=== PATIENT | female | born 1945 | race Caucasian/White ===

== ENCOUNTER 2016-08-26 08:22 | Observation (INO) | payer MEDICARE, OTHER ==
[~2016-08-26] VITALS: Ht 157.5 cm; Wt 75.6 kg
[2016-08-26 08:25] VITALS: BP 157/70; PULSE 65; RESP 16; TEMP 97.4; O2SAT 97
[2016-08-26] MEDS ORDERED: ONDANSETRON HCL 4 MG/2 ML VIAL ONE (08:51)
[2016-08-26] MEDS ORDERED: ONDANSETRON HCL 4 MG/2 ML VIAL IV PUSH ONE (09:00)
[2016-08-26] MEDS ORDERED: SODIUM CHLOR 0.9% 1000 ML INJ 1,000 ML IV SCH (09:00)
--- NOTE | 2016-08-26 09:04 | PD ---
HPI Chief Complaint: GI Complaint Time Seen by Provider: 08:32 Travel History International Travel<30 days: No Contact w/Intl Traveler<30days: No Traveled to known affect area: No History of Present Illness HPI This 71-year-old female presents with complaint of vomiting. He says the vomiting started yesterday and has been fairly persistent. She has trouble holding liquids down. Last Friday she developed some sore throat and cough. This seemed to be getting better on Friday. Friday she started with some headache and some cramping in her feet. Friday she started vomiting. She was started on a diuretic on . 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 She has had some loose stools but not really diarrhea. She is not complaining of abdominal pain. Cough is improved PFSH Past Medical History Hx Anticoagulant Therapy: No Cardiovascular Problems: Yes (HTN) Diabetes: No ?: Not Social History Tobacco Use: No Allergies-Medications (Allergen,Severity, Reaction): Coded Allergies: Sulfa (Verified Allergy, Severe, 08/26/16) Reported Meds & Prescriptions Reported Meds & Active Scripts Active Reported Brimonidine Opth Drops (Brimonidine Tartrate) 0.15% Soln 1 Drop EACH EYE TID Levothyroxine (Levothyroxine Sodium) 100 Mcg Tab 100 Mcg PO DAILY Amlodipine (Amlodipine Besylate) 5 Mg Tab 5 Mg PO DAILY Triamterene-Hydrochlorothiazide 37.5-25 Mg Tab 1 Tab PO DAILY Review of Systems General / Constitutional: No: Fever, Chills Eyes: No: Diploplia, Blurred Vision HENT: Positive: Headaches, Vertigo, Lightheadedness Cardiovascular: No: Chest Pain or Discomfort, Palpitations Respiratory: Positive: Cough, No: Shortness of Breath Gastrointestinal: Positive: Vomiting, No: Nausea Genitourinary: No: Urgency, Frequency Musculoskeletal: Positive: Myalgias, No: Weakness Skin: No Rash, No Itching Neurologic: Positive: Weakness, No: Syncope, Focal Abnormalities Psychiatric: No: Anxiety, Depression Endocrine: No: Heat Intolerance, Cold Intolerance Hematologic/Lymphatic: No: Easy Bruising, Lymph Node Enlargement Physical Exam Narrative GENERAL: Well-developed female. She is vomiting violently on arrival SKIN: Focused skin assessment warm/dry. HEAD: Atraumatic. Normocephalic. EYES: Pupils equal and round. No scleral icterus. No injection or drainage. ENT: No nasal bleeding or discharge. Mucous membranes pink and moist. NECK: Trachea midline. No JVD. CARDIOVASCULAR: Regular rate and rhythm. No murmur appreciated. RESPIRATORY: No accessory muscle use. Clear to auscultation. Breath sounds equal bilaterally. GASTROINTESTINAL: Abdomen soft, non-tender, nondistended. Hepatic and splenic margins not palpable. MUSCULOSKELETAL: No obvious deformities. No clubbing. No cyanosis. No edema. NEUROLOGICAL: Awake and alert. No obvious cranial nerve deficits. Motor grossly within normal limits. Normal speech. PSYCHIATRIC: Appropriate mood and affect; insight and judgment normal. Data Data Last Documented VS Vital Signs Date Time Temp Pulse Resp B/P Pulse Ox O2 Delivery O2 Flow Rate FiO2 08/26/16 09:42 58 16 155/77 97 Room Air 08/26/16 08:25 97.4 Orders Ondansetron Inj (Zofran Inj) (08/26/16 08:51) Complete Blood Count With Diff (08/26/16 08:55) Comprehensive Metabolic Panel (08/26/16 08:55) Urinalysis - C+S If Indicated (08/26/16 08:55) Sodium Chlor 0.9% 1000 Ml Inj (Ns 1000 M (08/26/16 09:00) Ondansetron Inj (Zofran Inj) (08/26/16 09:00) Place In Observation (08/26/16 ) Vital Signs (Adult) Q4H (08/26/16 10:47) Diet Regular Basic (08/26/16 Lunch) Sodium Chlor 0.9% 1000 Ml Inj (Ns 1000 M (08/26/16 11:00) Sodium Chloride 0.9% Flush (Ns Flush) (08/26/16 11:00) Sodium Chloride 0.9% Flush (Ns Flush) (08/26/16 21:00) Metoclopramide Inj (Reglan Inj) (08/26/16 11:00) Naloxone Inj (Narcan Inj) (08/26/16 11:00) Docusate Sodium-Senna (Rukhsana-Colace) (08/26/16 21:00) Magnesium Hydroxide Liq (Milk Of Magnesi (08/26/16 11:00) Sennosides (Senokot) (08/26/16 11:00) Bisacodyl Supp (Dulcolax Supp) (08/26/16 11:00) Lactulose Liq (Lactulose Liq) (08/26/16 11:00) Amlodipine (Norvasc) (08/27/16 09:00) Brimonidine 0.15% Opth Soln (Alphagan P (08/26/16 13:00) Levothyroxine (Synthroid) (08/27/16 06:00) Basic Metabolic Panel (Bmp) (08/27/16 06:00) Hepatic Functional Panel (08/27/16 06:00) Electrocardiogram (08/26/16 10:56) Admit Order (Ed Use Only) (08/26/16 10:56) Labs Laboratory Tests Test 08/26/16 09:02 White Blood Count 16.4 TH/MM3 Red Blood Count 5.13 MIL/MM3 Hemoglobin 14.8 GM/DL Hematocrit 43.2 % Mean Corpuscular Volume 84.2 FL Mean Corpuscular Hemoglobin 28.9 PG Mean Corpuscular Hemoglobin 34.3 % Concent Red Cell Distribution Width 10.8 % Platelet Count 444 TH/MM3 Mean Platelet Volume 7.3 FL Neutrophils (%) (Auto) 80.8 % Lymphocytes (%) (Auto) 13.4 % Monocytes (%) (Auto) 5.3 % Eosinophils (%) (Auto) 0.4 % Basophils (%) (Auto) 0.1 % Neutrophils # (Auto) 13.2 TH/MM3 Lymphocytes # (Auto) 2.2 TH/MM3 Monocytes # (Auto) 0.9 TH/MM3 Eosinophils # (Auto) 0.1 TH/MM3 Basophils # (Auto) 0.0 TH/MM3 CBC Comment DIFF FINAL Differential Comment Urine Collection Type VOIDED Urine Color YELLOW Urine Turbidity CLEAR Urine pH 6.0 Urine Specific [place] 1.021 Urine Protein NEG mg/dL Urine Glucose (UA) NEG mg/dL Urine Ketones NEG mg/dL Urine Occult Blood MOD Urine Nitrite NEG Urine Bilirubin NEG Urine Leukocyte Esterase NEG Urine WBC 0-2 /hpf Urine Squamous Epithelial 0-3 /hpf Cells Urine Mucus RARE /lpf Microscopic Urinalysis Comment CULT NOT INDICATED Sodium Level 121 MEQ/L Potassium Level 3.5 MEQ/L Chloride Level 84 MEQ/L Carbon Dioxide Level 23.0 MEQ/L Anion Gap 14 MEQ/L Blood Urea Nitrogen 11 MG/DL Creatinine 0.86 MG/DL Estimat Glomerular Filtration 65 ML/MIN Rate Random Glucose 136 MG/DL Calcium Level 9.3 MG/DL Total Bilirubin 1.2 MG/DL Aspartate Amino Transf 49 U/L (AST/SGOT) Alanine Aminotransferase 28 U/L (ALT/SGPT) Alkaline Phosphatase 105 U/L Total Protein 8.2 GM/DL Albumin 4.1 GM/DL MDM Medical Decision Making Medical Screen Exam Complete: Yes Emergency Medical Condition: Yes Medical Record Reviewed: Yes Differential Diagnosis Differential includes gastroenteritis, electrolyte imbalance, dehydration, adverse medication reaction Narrative Course Patient has been given IV fluids and Zofran and her vomiting has settled down. Her lab work is remarkable for a sodium of 121. This could be related to her diuretic, vomiting or SIADH. Patient will be admitted for further evaluation Diagnosis Primary Impression: Hyponatremia Admitting Information Admitting Physician Requests: Admit Josué Eldridge MD Aug 26, 2016 09:04
[2016-08-26] MEDS ORDERED: AMLO5TAB2 PO (09:07)
[2016-08-26] MEDS ORDERED: TRIA37.5 PO (09:07)
[2016-08-26] MEDS ORDERED: LEVO100T5 PO (09:07)
[2016-08-26] MEDS ORDERED: BRIM0.155 EACH EYE (09:07)
[2016-08-26 09:09] LABS: AUTOMATED NEUTROPHIL # 13.2 TH/MM3 (1.8-7.7); BASOPHIL % 0.1 % (0.0-2.0); EOSINOPHIL # 0.1 TH/MM3 (0-0.4); EOSINOPHIL % 0.4 % (0.0-4.0); GLUCOSE,URINE NEG (NEG); HEMATOCRIT 43.2 % (35.0-46.0); KETONE, URINE NEG (NEG); LYMPH % 13.4 % (9.0-44.0); LYMPHOCYTE # 2.2 TH/MM3 (1.0-4.8); MEAN CELL VOLUME 84.2 FL (80.0-100.0); MEAN CORPUSCULAR HEMOGLOBIN 28.9 PG (27.0-34.0); MEAN CORPUSCULAR HGB CONC 34.3 % (32.0-36.0); MONO % 5.3 % (0.0-8.0); NEUT % 80.8 % (16.0-70.0); NITRITE,URINE NEG (NEG); PLATELET COUNT 444 TH/MM3 (150-450); RED BLOOD COUNT 5.13 MIL/MM3 (4.00-5.30); RED CELL DISTRIBUTION WIDTH 10.8 % (11.6-17.2); WHITE BLOOD COUNT 16.4 TH/MM3 (4.0-11.0)
[2016-08-26 09:10] LABS: BLOOD, URINE MOD (NEG)
[2016-08-26 09:11] LABS: HEMO FLAGS DIFF FINAL
[2016-08-26 09:16] LABS: METHOD OF COLLECTION VOIDED; MUCUS URINE RARE /lpf (OCC); URINE COLOR YELLOW (YELLW/STRAW)
[2016-08-26 09:17] LABS: COMMENT (UR) CULT NOT INDICATED; CULTURE IF INDICATED CULT NOT INDICATED; SQUAMOUS EPITHELIAL CELL URINE 0-3 /hpf (0-5); WBC, URINE 0-2 /hpf (0-5)
[2016-08-26 09:42] VITALS: BP 155/77; PULSE 58; RESP 16; O2SAT 97
[2016-08-26 09:49] LABS: ALT (GPT) 28 U/L (10-53); GLOMERULAR FILTRATION RATE 65 ML/MIN (>89)
[2016-08-26 09:52] LABS: TOTAL BILIRUBIN ADULT 1.2 MG/DL (0.2-1.0)
[2016-08-26 09:53] LABS: ALKALINE PHOSPHATASE 105 U/L (45-117)
[2016-08-26 10:04] LABS: ANION GAP 14 MEQ/L (5-15); AST (GOT) 49 U/L (15-37); BLOOD UREA NITROGEN 11 MG/DL (7-18); CHLORIDE 84 MEQ/L (98-107); POTASSIUM 3.5 MEQ/L (3.5-5.1)
[2016-08-26 10:06] LABS: SODIUM (NA) 121 MEQ/L (136-145)
[2016-08-26] MEDS ORDERED: LACTULOSE SYRUP 20 GM/30 ML CUP PO PRN (11:00)
[2016-08-26] MEDS ORDERED: MAGNESIUM HYDROXIDE SUSP 30 ML CUP PO PRN (11:00)
[2016-08-26] MEDS ORDERED: NALOXONE HCL 0.4 MG/ML AMP IV PRN (11:00)
[2016-08-26] MEDS ORDERED: SODIUM CHLORIDE 0.9% FLUSH 10 ML FLUSH IV FLUSH PRN (11:00)
[2016-08-26] MEDS ORDERED: METOCLOPRAMIDE HCL 10 MG/2 ML VIAL IV PUSH PRN (11:00)
[2016-08-26] MEDS ORDERED: SENNOSIDES 8.6 MG TAB PO PRN (11:00)
[2016-08-26] MEDS ORDERED: BISACODYL 10 MG SUPP RECTAL PRN (11:00)
[2016-08-26] MEDS: SODIUM CHLOR 0.9% 1000 ML INJ 1,000 ML IV SCH ×2 (11:18→20:04)
[2016-08-26 12:00] VITALS: BP 151/68; PULSE 66; RESP 18; TEMP 96.8; O2SAT 98
[2016-08-26] MEDS: BRIMONIDINE TARTRATE 0.15% OPHT SOLN 5 ML BTL EACH EYE SCH ×2 (13:00→17:02)
[2016-08-26 16:00] VITALS: BP 153/71; PULSE 66; RESP 18; TEMP 98.2; O2SAT 97
[2016-08-26] MEDS ORDERED: cloNIDine HCL 0.1 MG TAB PO PRN (17:45)
--- NOTE | 2016-08-26 19:46 | MH ---
cc: PATRICK MO MD DATE OF ADMISSION: 08/26/2016 CHIEF COMPLAINT Nausea, vomiting. Cough, congestion. HISTORY OF PRESENT ILLNESS This is a 71-year-old female with past medical and surgical history significant for hypertension, hypothyroidism, history of glaucoma, came to the ER at [facility] having nausea and vomiting. The vomiting started yesterday and has been fairly persistent. She has trouble holding liquid down. Last Friday she had sore throat and cough, and seemed to be getting better. On Friday she started with headache and some cramping in the feet. On Friday she started vomiting. She saw Dr. 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 She had some loose stools but not really diarrhea. She denies any abdominal pain. She still has sinus congestion. Cough is a little better. She said that she had been on a cruise a year ago and since she has been out of the cruise, she feels like she has a feeling that she is on the cruise and some kind of a feeling like she is on the water all the time. She is seeing Dr. Zhao who is managing the patient. Other than that, nothing significant. PAST MEDICAL HISTORY, PAST SURGICAL HISTORY: As dictated above. SOCIAL HISTORY: Denies smoking, drinking, taking drugs. She lives at home. She is a retired teacher. She lives at home with son. FAMILY HISTORY: Nothing significant. ALLERGIES SULFA. MEDICATIONS: 1. Brimonidine ophthalmic drop 0.15%, one drop each eye 3x a day. 2. Levothyroxine 100 micrograms p.o. daily 3. Amlodipine 5 milligrams p.o. daily 4. Triamterene/Hydrochlorothiazide 37.5/25 p.o. daily. REVIEW OF SYSTEMS: Positive for cough, congestion, mild headache, nausea, feeling weak and tired. All other review of systems are negative. PHYSICAL EXAMINATION: This is a 71 year-old female laying on the bed, not in acute distress. Vital signs: Temperature 96.8, heart rate 66, respirations 18, blood pressure 151/68, O2 saturation 98% room air. HEENT: Normocephalic, atraumatic. EOMI. PERRL. Oral mucosa moist. Neck is supple. No visible thyromegaly or neck mass. Trachea central. CV: Regular rate and rhythm. Respirations clear to auscultation bilaterally. Abdomen: Soft, nontender. Bowel sounds audible. Extremities: No cyanosis or clubbing. Full range of motion of all extremities. Neuro: Awake, alert, oriented x4. No focal deficits. Skin: Warm and dry. Psych: The patient is cooperative, mood and affect is normal. LABORATORY DATA CBC showed WBC count 16.4 high, RDW is 10.8 low, neutrophil percentage is 80.8 high, otherwise CBC is normal. BMP totally unremarkable except for sodium 121 low, GFR 65 low, glucose 136 high, total bilirubin 1.2 high, AST 49 high. Urine examination shows moderate occult blood in the urine. EKG: Shows sinus rhythm with rate of 60. No acute changes, nonspecific ST-T wave changes. ASSESSMENT/PLAN This is a 71 year-old female who came to the ER diagnosed with nausea and vomiting. The patient is on metoclopramide 5 mg IV q6 hours. The patient's nausea and vomiting improved. Hyponatremia. The patient is on normal saline at 100 mL an hour. Nephrology consulted for hypernatremia. Further recommendations per nephrology. Leukocytosis secondary to upper respiratory tract infection. Will check CT chest to rule out pneumonia. I will start the patient on Rocephin 1 gram IV daily and Zithromax 500 mg IV daily. History of glaucoma. Continue home medications. History of hypertension. Continue on medication. Start clonidine 0.1 mg p.o. q.6 hours p.r.n. if BP above 160/90. History of hypothyroidism. Continue with levothyroxine 100 mcg p.o. daily. DVT prophylaxis, SCDs. GI prophylaxis, Protonix 40 mg p.o. daily. We are going to manage the patient on a daily basis and make recommendations on a daily basis. Patrick Mo MD EA/AIXA /5:35 PM /7:33 PM
[2016-08-26 20:00] VITALS: BP 140/68; PULSE 70; RESP 18; TEMP 98; O2SAT 92
[2016-08-26] MEDS: DOCUSATE SODIUM 50 MG/SENNA 8.6 MG TAB PO SCH (20:03)
[2016-08-26] MEDS: SODIUM CHLORIDE 0.9% FLUSH 10 ML FLUSH IV FLUSH SCH (20:04)
--- NOTE | 2016-08-26 20:26 | RADRPT ---
EXAM DATE/TIME: 08/26/2016 18:52 [facility] COMPARISON: No previous studies available for comparison. INDICATIONS : Cough. Leukocytosis. RADIATION DOSE: 8.89 CTDIvol (mGy) MEDICAL HISTORY : Hypertension. SURGICAL HISTORY : section. ENCOUNTER: Initial ACUITY: 1 day PAIN SCALE: 0/10 LOCATION: chest TECHNIQUE: Volumetric scanning of the chest was performed. Using automated exposure control and adjustment of t he mA and/or kV according to patient size, radiation dose was kept as low as reasonably achievable to obtain optimal diagnostic quality images. DICOM format image data is available electronically for r eview and comparison. FINDINGS: LUNGS: There is no consolidation or pneumothorax. There is a solitary 4 mm pulmonary nodule seen on image # 29 in the periphery of the right midlung.. PLEURAE: There is no pleural thickening or pleural effusion. MEDIASTINUM: The heart and great vessels demonstrate no acute abnormality. There is no mediastinal or hilar lymph adenopathy. AXILLAE: Within normal limits. No lymphadenopathy. MUSCULOSKELETAL: Within normal limits for patient age. MISCELLANEOUS: The visualized upper abdominal organs demonstrate no acute abnormality. CONCLUSION: 1. No evidence of infiltrate, pleural effusion, or consolidation. 2. 4 mm pulmonary nodule lateral right midlung. Recommend followup examination in 6 months. Rusty Li MD on August 26, 2016 at 20:21 Board Certified Radiologist. This report was verified electronically.
[2016-08-27] VITALS: BP 148/62; PULSE 67; RESP 16; TEMP 98.8; O2SAT 95
--- NOTE | 2016-08-27 05:38 | HHI.PR ---
Subjective History of Present Illness Patient c/o cough with phlegm Nausea / vomiting better no acute issue CT Chest shows pulmonary nodule consult pulmonary hyponatremia resolved. Review of Systems Constitutional Constitutional: Fatigue, Weakness Pulmonary Respiratory: Coughing GI/Abdomen GI/Abdominal Exam: Nausea Vitals/Results Intake & Output 08/26/16 08/26/16 08/27/16 15:00 23:00 07:00 Intake Total 1000 ml 280 ml Balance 1000 ml 280 ml Intake Oral 280 ml IV Total 1000 ml # Voids 1 # Bowel Movements 0 Vital Signs Vital Signs Date Time Temp Pulse Resp B/P Pulse Ox O2 Delivery O2 Flow Rate FiO2 08/27/16 00:00 98.8 67 16 148/62 95 08/26/16 20:00 98.0 70 18 140/68 92 08/26/16 16:00 98.2 66 18 153/71 97 08/26/16 12:00 96.8 66 18 151/68 98 08/26/16 09:42 58 16 155/77 97 Room Air 08/26/16 08:25 97.4 65 16 157/70 97 CBC/BMP: 08/26/16 0902 08/26/16 0902 Lab Results Laboratory Tests Test 08/26/16 09:02 White Blood Count 16.4 TH/MM3 Red Blood Count 5.13 MIL/MM3 Hemoglobin 14.8 GM/DL Hematocrit 43.2 % Mean Corpuscular Volume 84.2 FL Mean Corpuscular Hemoglobin 28.9 PG Mean Corpuscular Hemoglobin 34.3 % Concent Red Cell Distribution Width 10.8 % Platelet Count 444 TH/MM3 Mean Platelet Volume 7.3 FL Neutrophils (%) (Auto) 80.8 % Lymphocytes (%) (Auto) 13.4 % Monocytes (%) (Auto) 5.3 % Eosinophils (%) (Auto) 0.4 % Basophils (%) (Auto) 0.1 % Neutrophils # (Auto) 13.2 TH/MM3 Lymphocytes # (Auto) 2.2 TH/MM3 Monocytes # (Auto) 0.9 TH/MM3 Eosinophils # (Auto) 0.1 TH/MM3 Basophils # (Auto) 0.0 TH/MM3 CBC Comment DIFF FINAL Differential Comment Urine Collection Type VOIDED Urine Color YELLOW Urine Turbidity CLEAR Urine pH 6.0 Urine Specific [place] 1.021 Urine Protein NEG mg/dL Urine Glucose (UA) NEG mg/dL Urine Ketones NEG mg/dL Urine Occult Blood MOD Urine Nitrite NEG Urine Bilirubin NEG Urine Leukocyte Esterase NEG Urine WBC 0-2 /hpf Urine Squamous Epithelial 0-3 /hpf Cells Urine Mucus RARE /lpf Microscopic Urinalysis Comment CULT NOT INDICATED Sodium Level 121 MEQ/L Potassium Level 3.5 MEQ/L Chloride Level 84 MEQ/L Carbon Dioxide Level 23.0 MEQ/L Anion Gap 14 MEQ/L Blood Urea Nitrogen 11 MG/DL Creatinine 0.86 MG/DL Estimat Glomerular Filtration 65 ML/MIN Rate Random Glucose 136 MG/DL Calcium Level 9.3 MG/DL Total Bilirubin 1.2 MG/DL Aspartate Amino Transf 49 U/L (AST/SGOT) Alanine Aminotransferase 28 U/L (ALT/SGPT) Alkaline Phosphatase 105 U/L Total Protein 8.2 GM/DL Albumin 4.1 GM/DL Physical Exam General General Appearance: No Acute Distress, Comfortable Eyes Eye Exam: Pupils Equal, Pupils Reactive Throat Throat Exam: Oral Mucosa [place] & Moist, Oral Pharynx Normal Neck Neck Exam: Neck Supple, Trachea Midline Pulmonary Resp Exam: Clear Bilaterally, Breath Sounds Equal Cardiology CV Exam: Regular, Normal Sinus Rhythm Gastrointestinal/Abdomen GI Exam: Soft, Non-Tender, Bowel Sounds Present Musculoskeletal MS Exam: Normal Tone Integumentary Skin Exam: Clear, Warm, Dry, Intact Extremeties Extremities Exam: No Edema Neurologic Neuro Exam: Alert, Awake, Oriented, Moving All Extremities, No Focal Deficits VTE Prophylaxis VTE Prophylaxis Meds: Heparin PUD Prophylasis PUD Prophylaxis: Protonix Assessment/Plan Assessment/Plan ASSESSMENT/PLAN This is a 71 year-old female who came to the ER diagnosed with nausea and vomiting. The patient is on metoclopramide 5 mg IV q6 hours. The patient's nausea and vomiting improved. Hyponatremia. The patient was on normal saline at 100 mL an hour. Nephrology input noted for hyponatremia. Further recommendations per nephrology. Leukocytosis secondary to upper respiratory tract infection/ Acute Bronchitis. checked CT chest shows no pneumonia. have pulmonary nodule consult pulmonary. patient on Rocephin 1 gram IV daily and Zithromax 500 mg IV daily. History of glaucoma. Continue home medications. History of hypertension. Continue on medication. On clonidine 0.1 mg p.o. q.6 hours p.r.n. if BP above 160/90. History of hypothyroidism. Continue with levothyroxine 100 mcg p.o. daily. DVT prophylaxis, SCDs. GI prophylaxis, Protonix 40 mg p.o. daily. We are going to manage the patient on a daily basis and make recommendations on a daily basis. Discussed Condition with: Patient Patrick Menjivar MD Aug 27, 2016 05:38
[2016-08-27] MEDS: LEVOTHYROXINE SODIUM 100 MCG TAB PO SCH (05:50)
[2016-08-27] MEDS: cefTRIAXone INJ 1,000 MG in SODIUM CHLORIDE 0.9% INJ 100 ML IV SCH (05:56)
[2016-08-27] MEDS: AZITHROMYCIN INJ 500 MG in SODIUM CHLOR 0.9% 250 ML INJ 250 ML IV SCH (05:57)
[2016-08-27] MEDS: SODIUM CHLOR 0.9% 1000 ML INJ 1,000 ML IV SCH ×2 (07:00→17:57)
[2016-08-27 07:46] LABS: AUTOMATED NEUTROPHIL # 9.2 TH/MM3 (1.8-7.7); BASOPHIL % 0.1 % (0.0-2.0); EOSINOPHIL # 0.2 TH/MM3 (0-0.4); EOSINOPHIL % 1.4 % (0.0-4.0); HEMATOCRIT 39.7 % (35.0-46.0); HEMO FLAGS DIFF FINAL; LYMPHOCYTE # 2.3 TH/MM3 (1.0-4.8); MEAN CELL VOLUME 85.6 FL (80.0-100.0); MEAN CORPUSCULAR HEMOGLOBIN 29.5 PG (27.0-34.0); MEAN CORPUSCULAR HGB CONC 34.4 % (32.0-36.0); MONO % 11.5 % (0.0-8.0); PLATELET COUNT 334 TH/MM3 (150-450); RED BLOOD COUNT 4.64 MIL/MM3 (4.00-5.30); RED CELL DISTRIBUTION WIDTH 11.3 % (11.6-17.2); WHITE BLOOD COUNT 13.2 TH/MM3 (4.0-11.0)
[2016-08-27 07:58] LABS: BICARBONATE 28.4 MEQ/L (21.0-32.0); INDIRECT BILIRUBIN 0.5 MG/DL (0.0-0.8); POTASSIUM 3.2 MEQ/L (3.5-5.1); TOTAL BILIRUBIN ADULT 0.6 MG/DL (0.2-1.0)
[2016-08-27 08:00] VITALS: BP 142/69; PULSE 92; RESP 17; TEMP 99; O2SAT 97
[2016-08-27] MEDS: amLODIPine BESYLATE 5 MG TAB PO SCH (08:39)
[2016-08-27] MEDS: DOCUSATE SODIUM 50 MG/SENNA 8.6 MG TAB PO SCH ×2 (08:39→20:38)
[2016-08-27] MEDS: BRIMONIDINE TARTRATE 0.15% OPHT SOLN 5 ML BTL EACH EYE SCH ×3 (08:40→17:59)
[2016-08-27] MEDS: SODIUM CHLORIDE 0.9% FLUSH 10 ML FLUSH IV FLUSH SCH ×2 (09:00→20:39)
[2016-08-27] MEDS: PANTOPRAZOLE SOD 40 MG DELAYED RELEASE TAB PO SCH (09:00)
[2016-08-27 12:00] VITALS: BP 139/73; PULSE 78; RESP 19; TEMP 98.9; O2SAT 99
--- NOTE | 2016-08-27 13:34 | EKG ---
Date Performed: 08/26/2016 Time Performed: 11:02:06 PTAGE: 71 years EKG: Sinus rhythm WITH FIRST DEGREE AV BLOCK ABNORMAL ECG INTERPRETATION BASED ON A DEFAULT AGE OF 42 YEARS NO PREVIOUS TRACING DOCTOR: Salvador Jorgensen Interpretating Date/Time 08/27/2016 13:25:39
[2016-08-27 16:00] VITALS: BP 147/60; PULSE 66; RESP 17; TEMP 97.4; O2SAT 95
--- NOTE | 2016-08-27 18:49 | PD.CONS ---
HPI Service Nephrology Consult Requested By Dr. Menjivar Reason for Consult Hyponatremia Primary Care Physician Marbin Barboza MD History of Present Illness Patient is 71-year-old white female with history of hypertension, she states that she has this Disembarkment syndrome, diagnosed by Dr. Zhao ENT , she went on a cruise and for one years she felt like the earth is moving and she was prescribed Dyazide diuretic, she took it for a few days but on Friday she felt headache and felt weak and tired with muscle cramps , and came in with these complaints and noted to have a sodium of 121, she was placed on normal saline and not sodium is 143, she also has a cough since Friday Review of Systems Constitutional: COMPLAINS OF: Fatigue Respiratory: COMPLAINS OF: Cough Musculoskeletal: COMPLAINS OF: Stiffness Psychiatric: COMPLAINS OF: Anxiety Past Family Social History Allergies: Coded Allergies: Sulfa (Verified Allergy, Severe, 08/26/16) Past Medical History Hypertension Anxiety Depression Glaucoma Hypothyroidism Past Surgical History Reported Medications Reported Meds & Active Scripts Active Reported Brimonidine Opth Drops (Brimonidine Tartrate) 0.15% Soln 1 Drop EACH EYE TID Levothyroxine (Levothyroxine Sodium) 100 Mcg Tab 100 Mcg PO DAILY Amlodipine (Amlodipine Besylate) 5 Mg Tab 5 Mg PO DAILY Triamterene-Hydrochlorothiazide 37.5-25 Mg Tab 1 Tab PO DAILY Active Ordered Medications Current Medications Medications (Trade) Dose Ordered Sig/Sami Route Start Time Stop Time Status Last Admin (NS 1000 ml Inj) 1,000 ml @ 100 mls/hr Q10H IV 08/26/16 11:00 08/27/16 17:57 (NS Flush) 2 ml UNSCH PRN IV FLUSH 08/26/16 11:00 (NS Flush) 2 ml BID IV FLUSH 08/26/16 21:00 08/27/16 09:00 (Reglan Inj) 5 mg Q6H PRN IV PUSH 08/26/16 11:00 08/26/16 17:02 (Narcan Inj) 0.4 mg UNSCH PRN IV 08/26/16 11:00 (Rukhsana-Colace) 1 tab BID PO 08/26/16 21:00 08/27/16 08:39 (Milk Of Magnesia Liq) 30 ml Q12H PRN PO 08/26/16 11:00 (Senokot) 17.2 mg Q12H PRN PO 08/26/16 11:00 (Dulcolax Supp) 10 mg DAILY PRN RECTAL 08/26/16 11:00 (Lactulose Liq) 30 ml DAILY PRN PO 08/26/16 11:00 (Norvasc) 5 mg DAILY PO 08/27/16 09:00 08/27/16 08:39 (Alphagan P 0.15% Opth Soln) 1 drop TID EACH EYE 08/26/16 13:00 08/27/16 17:59 (Synthroid) 100 mcg DAILY@06 PO 08/27/16 06:00 08/27/16 05:50 (Protonix) 40 mg DAILY PO 08/26/16 18:00 Clonidine 0.1 mg 0.1 mg Q6H PRN PO 08/26/16 17:45 Ceftriaxone Sodium 1000 mg/ Sodium Chloride 100 ml @ 200 mls/hr DAILY@0600 IV 08/27/16 06:00 08/27/16 05:56 (Zithromax Inj/ NS 250 ml Inj) 250 ml @ 250 mls/hr DAILY@0600 IV 08/27/16 06:00 08/27/16 05:57 Family History Noncontributory Social History Denies smoking or alcohol use Physical Exam Vital Signs Vital Signs Date Time Temp Pulse Resp B/P Pulse Ox O2 Delivery O2 Flow Rate FiO2 08/27/16 16:00 97.4 66 17 147/60 95 08/27/16 12:00 98.9 78 19 139/73 99 08/27/16 08:00 99.0 92 17 142/69 97 08/27/16 00:00 98.8 67 16 148/62 95 08/26/16 20:00 98.0 70 18 140/68 92 Physical Exam GENERAL: Well-nourished, well-developed patient. SKIN: Warm and dry. HEAD: Normocephalic. EYES: No scleral icterus. No injection or drainage. NECK: Supple, trachea midline. No JVD or lymphadenopathy. CARDIOVASCULAR: Regular rate and rhythm without murmurs, gallops, or rubs. RESPIRATORY: Breath sounds equal bilaterally. No accessory muscle use. GASTROINTESTINAL: Abdomen soft, non-tender, nondistended. EXTREMITIES: No cyanosis, or edema. NEUROLOGICAL: Awake, alert, and oriented x 3. Non-focal. Laboratory Laboratory Tests Test 08/27/16 06:40 White Blood Count 13.2 Red Blood Count 4.64 Hemoglobin 13.7 Hematocrit 39.7 Mean Corpuscular Volume 85.6 Mean Corpuscular Hemoglobin 29.5 Mean Corpuscular Hemoglobin 34.4 Concent Red Cell Distribution Width 11.3 Platelet Count 334 Mean Platelet Volume 7.8 Neutrophils (%) (Auto) 70.0 Lymphocytes (%) (Auto) 17.0 Monocytes (%) (Auto) 11.5 Eosinophils (%) (Auto) 1.4 Basophils (%) (Auto) 0.1 Neutrophils # (Auto) 9.2 Lymphocytes # (Auto) 2.3 Monocytes # (Auto) 1.5 Eosinophils # (Auto) 0.2 Basophils # (Auto) 0.0 CBC Comment DIFF FINAL Differential Comment Sodium Level 143 Potassium Level 3.2 Chloride Level 105 Carbon Dioxide Level 28.4 Anion Gap 10 Blood Urea Nitrogen 9 Creatinine 0.90 Estimat Glomerular Filtration 62 Rate Random Glucose 101 Calcium Level 8.9 Total Bilirubin 0.6 Direct Bilirubin 0.1 Indirect Bilirubin 0.5 Aspartate Amino Transf 26 (AST/SGOT) Alanine Aminotransferase 22 (ALT/SGPT) Alkaline Phosphatase 88 Total Protein 6.9 Albumin 3.4 Result Diagram: 08/27/16 0640 08/27/16 0640 Imaging Last Impressions Chest CT 08/26/16 0000 Signed Impressions: Service Date/Time: Friday, August 26, 2016 18:52 - CONCLUSION: 1. No evidence of infiltrate, pleural effusion, or consolidation. 2. 4 mm pulmonary nodule lateral right midlung. Recommend followup examination in 6 months. Rusty Li MD Assessment and Plan Problem List: (1) Hyponatremia Plan: This is likely to due to thiazide type of diuretics, it has been discontinued and sodium is corrected We should be cautious and over correcting sodium too rapidly I will discontinue normal saline at this point Since this problem has resolved and appears to be due to medication related incident I therefore advised her to stay away from thiazide type of diuretic She can follow with primary care physician Nephrology will sign off (2) Hypertension Plan: Continue to monitor (3) Lung nodule Plan: CT findings reviewed needs follow-up (4) Hypokalemia Plan: Due to diuretic and replace Lois Coelho MD Aug 27, 2016 18:49
[2016-08-27 20:00] VITALS: BP 131/63; PULSE 63; RESP 16; TEMP 97.6; O2SAT 95
[2016-08-27] MEDS ORDERED: POTASSIUM CHLORIDE 10 MEQ CONTROLLED RELEASE TAB PO ONE (20:00)
[2016-08-28] VITALS: BP 135/65; PULSE 60; RESP 20; TEMP 98.6; O2SAT 93
[2016-08-28] MEDS: LEVOTHYROXINE SODIUM 100 MCG TAB PO SCH (05:37)
[2016-08-28] MEDS: cefTRIAXone INJ 1,000 MG in SODIUM CHLORIDE 0.9% INJ 100 ML IV SCH (05:37)
[2016-08-28] MEDS: AZITHROMYCIN INJ 500 MG in SODIUM CHLOR 0.9% 250 ML INJ 250 ML IV SCH (05:38)
[2016-08-28 06:28] LABS: AUTOMATED NEUTROPHIL # 5.9 TH/MM3 (1.8-7.7); BASOPHIL # 0.1 TH/MM3 (0-0.2); BASOPHIL % 0.5 % (0.0-2.0); EOSINOPHIL # 0.5 TH/MM3 (0-0.4); EOSINOPHIL % 4.2 % (0.0-4.0); HEMATOCRIT 38.3 % (35.0-46.0); HEMO FLAGS DIFF FINAL; LYMPH % 25.1 % (9.0-44.0); LYMPHOCYTE # 2.7 TH/MM3 (1.0-4.8); MEAN CELL VOLUME 86.3 FL (80.0-100.0); MEAN CORPUSCULAR HEMOGLOBIN 29.4 PG (27.0-34.0); MONO % 13.6 % (0.0-8.0); NEUT % 56.6 % (16.0-70.0); PLATELET COUNT 300 TH/MM3 (150-450); RED BLOOD COUNT 4.44 MIL/MM3 (4.00-5.30); RED CELL DISTRIBUTION WIDTH 11.5 % (11.6-17.2); WHITE BLOOD COUNT 10.7 TH/MM3 (4.0-11.0)
[2016-08-28 06:39] LABS: CHLORIDE 106 MEQ/L (98-107); POTASSIUM 3.6 MEQ/L (3.5-5.1); SODIUM (NA) 141 MEQ/L (136-145)
[2016-08-28 06:42] LABS: ANION GAP 6 MEQ/L (5-15); BICARBONATE 28.7 MEQ/L (21.0-32.0); BLOOD UREA NITROGEN 8 MG/DL (7-18)
[2016-08-28 06:45] LABS: ALT (GPT) 27 U/L (10-53); AST (GOT) 30 U/L (15-37); GLOMERULAR FILTRATION RATE 65 ML/MIN (>89)
[2016-08-28 06:47] LABS: TOTAL BILIRUBIN ADULT 0.5 MG/DL (0.2-1.0)
[2016-08-28 06:48] LABS: ALKALINE PHOSPHATASE 85 U/L (45-117)
--- NOTE | 2016-08-28 07:10 | HHI.PR ---
Subjective History of Present Illness Patient c/o cough with phlegm Nausea / vomiting better no acute issue CT Chest shows pulmonary nodule consult pulmonary hyponatremia resolved...d/w RN Fady at bed side Review of Systems Constitutional Constitutional: Fatigue, Weakness Pulmonary Respiratory: Coughing GI/Abdomen GI/Abdominal Exam: Nausea Vitals/Results Intake & Output 08/27/16 08/27/16 08/28/16 15:00 23:00 07:00 Intake Total 800 ml 840 ml Balance 800 ml 840 ml Intake Oral 840 ml IV Total 800 ml # Voids 4 # Bowel Movements 0 Vital Signs Vital Signs Date Time Temp Pulse Resp B/P Pulse Ox O2 Delivery O2 Flow Rate FiO2 08/28/16 00:00 98.6 60 20 135/65 93 08/27/16 20:00 97.6 63 16 131/63 95 08/27/16 16:00 97.4 66 17 147/60 95 08/27/16 12:00 98.9 78 19 139/73 99 08/27/16 08:00 99.0 92 17 142/69 97 CBC/BMP: 08/28/16 0535 08/28/16 0535 Lab Results Laboratory Tests Test 08/28/16 05:35 White Blood Count 10.7 TH/MM3 Red Blood Count 4.44 MIL/MM3 Hemoglobin 13.0 GM/DL Hematocrit 38.3 % Mean Corpuscular Volume 86.3 FL Mean Corpuscular Hemoglobin 29.4 PG Mean Corpuscular Hemoglobin 34.0 % Concent Red Cell Distribution Width 11.5 % Platelet Count 300 TH/MM3 Mean Platelet Volume 7.6 FL Neutrophils (%) (Auto) 56.6 % Lymphocytes (%) (Auto) 25.1 % Monocytes (%) (Auto) 13.6 % Eosinophils (%) (Auto) 4.2 % Basophils (%) (Auto) 0.5 % Neutrophils # (Auto) 5.9 TH/MM3 Lymphocytes # (Auto) 2.7 TH/MM3 Monocytes # (Auto) 1.5 TH/MM3 Eosinophils # (Auto) 0.5 TH/MM3 Basophils # (Auto) 0.1 TH/MM3 CBC Comment DIFF FINAL Differential Comment Sodium Level 141 MEQ/L Potassium Level 3.6 MEQ/L Chloride Level 106 MEQ/L Carbon Dioxide Level 28.7 MEQ/L Anion Gap 6 MEQ/L Blood Urea Nitrogen 8 MG/DL Creatinine 0.86 MG/DL Estimat Glomerular Filtration 65 ML/MIN Rate Random Glucose 88 MG/DL Calcium Level 8.8 MG/DL Total Bilirubin 0.5 MG/DL Aspartate Amino Transf 30 U/L (AST/SGOT) Alanine Aminotransferase 27 U/L (ALT/SGPT) Alkaline Phosphatase 85 U/L Total Protein 6.6 GM/DL Albumin 3.2 GM/DL Physical Exam General General Appearance: No Acute Distress, Comfortable Eyes Eye Exam: Pupils Equal, Pupils Reactive Throat Throat Exam: Oral Mucosa [place] & Moist, Oral Pharynx Normal Neck Neck Exam: Neck Supple, Trachea Midline Pulmonary Resp Exam: Clear Bilaterally, Breath Sounds Equal Cardiology CV Exam: Regular, Normal Sinus Rhythm Gastrointestinal/Abdomen GI Exam: Soft, Non-Tender, Bowel Sounds Present Musculoskeletal MS Exam: Normal Tone Integumentary Skin Exam: Clear, Warm, Dry, Intact Extremeties Extremities Exam: No Edema Neurologic Neuro Exam: Alert, Awake, Oriented, Moving All Extremities, No Focal Deficits VTE Prophylaxis VTE Prophylaxis Meds: Heparin PUD Prophylasis PUD Prophylaxis: Protonix Assessment/Plan Assessment/Plan ASSESSMENT/PLAN This is a 71 year-old female who came to the ER diagnosed with nausea and vomiting. The patient is on metoclopramide 5 mg IV q6 hours. The patient's nausea and vomiting improved. Hyponatremia. The patient was on normal saline at 100 mL an hour. Nephrology input noted for hyponatremia. Further recommendations per nephrology...resolved. Leukocytosis secondary to upper respiratory tract infection/ Acute Bronchitis. checked CT chest shows no pneumonia. have pulmonary nodule consult pulmonary. patient on Rocephin 1 gram IV daily and Zithromax 500 mg IV daily...resolved. History of glaucoma. Continue home medications. History of hypertension. Continue on medication. On clonidine 0.1 mg p.o. q.6 hours p.r.n. if BP above 160/90. History of hypothyroidism. Continue with levothyroxine 100 mcg p.o. daily. DVT prophylaxis, SCDs. GI prophylaxis, Protonix 40 mg p.o. daily. We are going to manage the patient on a daily basis and make recommendations on a daily basis. Discussed Condition with: Patient Patrick Menjivar MD Aug 28, 2016 07:10
[2016-08-28 08:49] VITALS: BP 147/76; PULSE 61; RESP 15; TEMP 96.5; O2SAT 98
[2016-08-28] MEDS: PANTOPRAZOLE SOD 40 MG DELAYED RELEASE TAB PO SCH (09:00)
[2016-08-28] MEDS: DOCUSATE SODIUM 50 MG/SENNA 8.6 MG TAB PO SCH (09:13)
[2016-08-28] MEDS: amLODIPine BESYLATE 5 MG TAB PO SCH (09:13)
[2016-08-28] MEDS: SODIUM CHLORIDE 0.9% FLUSH 10 ML FLUSH IV FLUSH SCH (09:14)
[2016-08-28] MEDS: BRIMONIDINE TARTRATE 0.15% OPHT SOLN 5 ML BTL EACH EYE SCH ×2 (09:14→12:26)
[2016-08-28] MEDS: RESP: ALBUTEROL 2.5 MG/IPRATROPIUM 0.5 MG NEB (SCH) NEB ×2 (10:52→15:41)
[2016-08-28 10:54] VITALS: O2SAT 94
[2016-08-28 12:00] VITALS: BP 147/65; PULSE 64; RESP 16; TEMP 97.2; O2SAT 94
[2016-08-28] MEDS ORDERED: ZITH500T PO (16:54)
[2016-08-28] MEDS ORDERED: CEFU1TAB20 PO (16:54)
[2016-08-28 17:26] VITALS: BP 184/71; PULSE 73; RESP 18; TEMP 97.8; O2SAT 98
== END 2016-08-28 18:40 | disposition home or self-care (01) ==
LOC: PHED 08:22 → INTOOBSV 10:57 → PHEDA 10:57 → PH3B 11:22
PROVIDERS: ADMIT Family Medicine; ATTEND Family Medicine
DX: R11.2 Nausea with vomiting, unspecified (principal); J06.9 Acute upper respiratory infection, unspecified; R31.9 Hematuria, unspecified; R91.1 Solitary pulmonary nodule; M79.1 Myalgia; R94.31 Abnormal electrocardiogram [ECG] [EKG]; I44.0 Atrioventricular block, first degree; E87.6 Hypokalemia; E87.1 Hypo-osmolality and hyponatremia; I10 Essential (primary) hypertension; E03.9 Hypothyroidism, unspecified; F41.9 Anxiety disorder, unspecified; F32.9 Major depressive disorder, single episode, unspecified; H40.9 Unspecified glaucoma; Z79.899 Other long term (current) drug therapy
CPT/HCPCS: 71250; 80048; 80053; 80076; 81001; 85025; 93005; 94640; 94664; 96361; 96374; 99285; G0378; J0456; J0696; J2405; J2765; J7030; J7050